=== PATIENT | female | born 1945 | race Caucasian/White ===

== ENCOUNTER 2017-07-18 15:15 | Outpatient (CLI) | payer MEDICARE, BC | END 2017-07-18 15:16 | disposition home or self-care (01) | LOC: BICMAMMO 15:15 | PROVIDERS: ATTEND Physician Assistant | DX: Z13.820 Encounter for screening for osteoporosis (principal) | CPT/HCPCS: 77080 ==

== ENCOUNTER 2017-07-28 12:34 | Outpatient (CLI) | payer MEDICARE, BC ==
--- NOTE | 2017-07-28 17:45 | MRI ---
MRI OF THE RIGHT SHOULDER WITHOUT CONTRAST 07/28/17 INDICATION: History of fall with right shoulder injury. FINDINGS: There is a full thickness tear involving the supraspinatus at its insertion measuring 1.4 x 1.7 cm in its greatest mediolateral AP dimension respectively. A few fibers of the anterior aspect of the supr aspinatus remain attached to the greater tuberosity. There is moderate tendinosis of the infraspinatu s and supraspinatus. No muscular atrophy is evident. Biceps tendon is located. There is some mild deg enerative signal involving the superior glenoid labrum and biceps anchor. Visualized glenohumeral art icular surface is normal appearing. No paralabral cyst is evident. There is mild AC joint osteoarthro sis. There is type II acromion. IMPRESSION: 1. Full thickness supraspinatus tear. 2. Moderate supraspinatus and infraspinatus tendinosis. 3. Mild AC joint osteoarthrosis. 4. Degenerative intrasubstance signal involving the superior glenoid labrum and biceps anchor. POS: OFF
== END 2017-07-28 12:35 | disposition home or self-care (01) ==
LOC: SCSMRI 12:34
PROVIDERS: ATTEND Orthopaedic Surgery Hand Surgery
DX: M75.101 Unspecified rotator cuff tear or rupture of right shoulder, not specified as traumatic (principal); M75.81 Other shoulder lesions, right shoulder; M19.011 Primary osteoarthritis, right shoulder

== ENCOUNTER 2017-08-18 17:50 | Inpatient (IN) | payer MEDICARE, BC ==
[2017-08-18] MEDS ORDERED: Acetaminophen 500 MG TAB ONE (18:15)
[2017-08-18] MEDS ORDERED: cefTRIAXone\\ROCEPHIN 2 GM VIAL ONE (18:50)
[2017-08-18] MEDS ORDERED: Sodium Chloride 0.9% 100 ML ONE (18:51)
[2017-08-18 18:52] LABS: ALT (SGPT) 12 U/L (8-55); AST (SGOT) 45 U/L (5-34); Albumin 3.9 g/dL (3.4-4.8); Alkaline Phosphatase 45 U/L (40-150); Anion Gap 14 mmol/L (10-20); BUN (Urea Nitrogen) 18 mg/dL (9.8-20.1); Calc. Creatinine Clearance 0 mL/min (70-130); Calcium 9.3 mg/dL (7.8-10.44); Carbon Dioxide 23 mmol/L (23-31); Chloride 105 mmol/L (98-107); Estimated GFR-MDRD 56; Globulin 2.4 g/dL (2.4-3.5); Glucose 114 mg/dL (80-115); Lipase 29 U/L (8-78); Potassium 4.2 mmol/L (3.5-5.1); Protein, Total 6.3 g/dL (6.0-8.3); Sodium 138 mmol/L (136-145)
[2017-08-18 18:56] LABS: Band 4 % (5-11); Eosinophils 1 % (0-10); Hemoglobin 12.4 g/dL (12.0-16.0); Lymphocytes 9 % (21-51); MDiff Complete? YES; Mean Corpuscular HGB CONC 33.7 g/dL (32.0-36.0); Mean Corpuscular Hemoglobin 29.1 pg (27.0-31.0); Mean Corpuscular Volume 86.2 fl (81.0-99.0); Mean Platelet Volume 6.8 fL (7.4-10.4); Monocytes 2 % (0-10); Neutrophil 83 % (42-75); PLT Morphology Comment Appears Adequate; Platelet Count 169 thou/uL (130-400); RBC Distribution Width 11.8 % (11.5-14.5); RBC Morphology Normal; Red Blood Cell (RBC) Count 4.27 mill/uL (4.20-5.40); White Blood Cell (WBC) Count 4.5 thou/uL (4.8-10.8)
[2017-08-18 19:35] LABS: Bilirubin Negative (Negative); Blood, Urine Large (Negative); Glucose, Urine (Dipstick) Negative (Negative); Leukocyte Large (Negative); Nitrite Positive (Negative); Protein, Urine (Dipstick) 100 mg/dL (Neg-Trace); Urobilinogen 0.2 mg/dL (0.2-1.0)
[2017-08-18 19:36] LABS: Clarity Hazy (Clear)
[2017-08-18 19:44] LABS: Bacteria/HPF 3+ HPF (None Seen); WBC/HPF 21-50 HPF (0-3)
[2017-08-18 21:23] VITALS: BMI 33.5
[2017-08-18] MEDS ORDERED: Ondansetron ODT 4 MG TAB SL PRN (21:24)
[2017-08-18] MEDS ORDERED: Acetaminophen 325 MG TAB PO PRN (21:24)
[2017-08-18] MEDS ORDERED: Ondansetron HCl/PF 4 MG/2 ML Vial IVP PRN (21:24)
[2017-08-18] MEDS: Sodium Chloride 0.9% 1,000 ML IV SCH ×2 (21:30→23:27)
[2017-08-19] MEDS ORDERED: Ondansetron ODT 4 MG TAB PO PRN (02:31)
[2017-08-19] MEDS ORDERED: Acetaminophen 325 MG TAB PO PRN (02:31)
[2017-08-19] MEDS ORDERED: Senokot 8.6 MG TAB PO PRN (02:31)
[2017-08-19] MEDS ORDERED: Calcium Carbonate 500 MG ChewTAB PO PRN (02:31)
[2017-08-19] MEDS ORDERED: Ondansetron HCl/PF 4 MG/2 ML Vial IVP PRN (02:31)
[2017-08-19] MEDS ORDERED: hydrALAZINE 20 MG/ML VIAL SLOW IVP PRN (02:31)
--- NOTE | 2017-08-19 02:54 | HP ---
DATE OF ADMISSION: 08/18/2017 The patient was seen and examined on 08/18/2017 PRIMARY CARE PHYSICIAN: Dr. Flores. CODE STATUS: FULL CODE. SURROGATE DECISION MAKER: The patient makes her own decision with the help of her family. CHIEF COMPLAINT: Fever and flank pain. HISTORY OF PRESENT ILLNESS: The patient is a 71-year-old female with recurrent urinary tract infecti ons, presented to the emergency room due to fever along with flank pain. Last week, the patient had urinary urgency along with dysuria for which she was started on Bactrim af ter urinalysis and urine culture. However, urine culture showed 25,000-50,000 mixed skin and enteric myles. She was instructed to discontinue Bactrim. Approximately 5 days ago, the patient started having similar symptoms for which urine cultures were d one. This time, urine culture showed E. coli. She was started on Bactrim. Earlier today, she recei tia a call from her primary care physician to discontinue Bactrim and to come to the emergency room f or IV antibiotics. She also had bilateral flank pain along with fever of 103.4 at home. She denies any nausea, vomiting, skin rash, cough, shortness of breath, wheezing. She was also started on Kefle x earlier today based on the urine culture. PAST MEDICAL HISTORY: 1. Recurrent urinary tract infections. 2. Endometriosis. 3. Osteopenia. 4. Hypertension. 5. Hyperlipidemia. PAST SURGICAL HISTORY: 1. Colonoscopy in 2016. 2. Hysterectomy. 3. Gastric sleeve in 2014. ALLERGIES: 1. LEVAQUIN AND CIPROFLOXACIN that causes nausea. 2. VANCOMYCIN. CURRENT HOME MEDICATIONS: Premarin vaginal cream every 7 days, glucosamine, multivitamin. SOCIAL HISTORY: The patient currently lives at home. No smoking or drug use. Drinks alcohol social ly. FAMILY HISTORY: Negative for premature coronary artery disease. REVIEW OF SYSTEMS: The following complete review of systems was negative, unless otherwise mentioned in the HPI or below: Constitutional: Weight loss or gain, ability to conduct usual activities. Skin: Rash, itching. Eyes: Double vision, pain. ENT/Mouth: Nose bleeding, neck stiffness, pain, tenderness. Cardiovascular: Palpitations, dyspnea on exertion, orthopnea. Respiratory: Shortness of breath, wheezing, cough, hemoptysis, fever or night sweats. Gastrointestinal: Poor appetite, abdominal pain, heartburn, nausea, vomiting, constipation, or diarr hea. Genitourinary: Urgency, frequency, dysuria, nocturia. Musculoskeletal: Pain, swelling. Neurologic/Psychiatric: Anxiety, depression. Allergy/Immunologic: Skin rash, bleeding tendency. PHYSICAL EXAMINATION: VITAL SIGNS: In the emergency room showed temperature 103.1, respirations 18, pulse of 104, blood pr essure of 143/58, O2 saturation 94% on room air. GENERAL: A 71-year-old female, in no significant distress, flank pain improved with IV fluid and ant ibiotics in the emergency room. HEENT: Head atraumatic, normocephalic. Sclerae are anicteric. Moist mucous membrane. No oral lesi on. NECK: Supple, no JVD appreciated. No carotid bruit. LUNGS: Clear to auscultation bilaterally. No wheezing, rales, rhonchi. HEART: S1, S2 present. Regular rate and rhythm. No murmur, rubs or gallops. ABDOMEN: Soft, nontender, bowel sounds present, no rebound or guarding. No significant flank tender ness. EXTREMITIES: No edema or calf tenderness. NEUROLOGIC: Grossly nonfocal, moves all four extremities. PSYCHIATRY: Alert, awake, oriented x3. SKIN: Warm and dry. LYMPH NODES: No palpable lymph nodes in the neck. PERIPHERAL VASCULAR: Radial pulses palpable bilaterally. MUSCULOSKELETAL: No joint swelling or tenderness. SKIN: Warm and dry. LABORATORY FINDINGS: CBC showed WBC 4.5 with hemoglobin 12.4, hematocrit 36.8, platelet of 169. Lac tic acid was 1.2. Chemistry showed sodium 138, potassium 4.2, chloride 105, bicarbonate 23, BUN of 1 8, creatinine 0.98. Urinalysis showed 21-50 wbc's with 3+ bacteria. IMPRESSION: 1. Sepsis secondary to urinary tract infection with suspected pyelonephritis. 2. Hypertension, diet controlled. 3. Chronic kidney disease, stage 3. 4. Obesity with a BMI of 33.5. 5. History of recurrent urinary tract infections. 6. Hyperlipidemia. PLAN: 1. The patient will be monitored in the medical floor as an inpatient status. The patient had a tem perature of 103.1 with tachycardia in the emergency room. She also failed outpatient therapy. Urine culture showed E. coli, which is resistant to Bactrim. She is also allergic to CIPROFLOXACIN and LE VAQUIN. The patient received ceftriaxone in the emergency room, which will be continued. She receiv ed 2 liters IV fluid along with Tylenol in the emergency room. Her current temperature is 100.2 with a blood pressure 97/51. We will continue IV fluids at 150 mL an hour. We will consult walking milton sebastián. Continue Rocephin. We will check postvoid residual. We will also consult Dr. Jansen due to res istant organism. We will add p.r.n. antihypertensives. Vital signs q.4 hourly. 2. The patient will require 2-3 days for stabilization. Plan of care was discussed with the patient in detail. She stated understanding.
[2017-08-19] MEDS: Sodium Chloride 0.9% 1,000 ML IV SCH ×4 (03:09→20:14)
[2017-08-19 04:25] LABS: #Lymphocytes 1.2 thou/uL (1.20-3.40); #Monocytes 0.5 thou/uL (0.11-0.59); #Neutrophils 5.5 thou/uL (1.40-6.50); %Basophils 0.2 % (0.0-1.0); %Eosinophils 0.6 % (0.0-10.0); %Lymphocytes 16.6 % (21.0-51.0); %Monocytes 6.9 % (0.0-10.0); %Neutrophils 75.6 % (42.0-75.0); Hemoglobin 10.8 g/dL (12.0-16.0); Mean Corpuscular Hemoglobin 30.8 pg (27.0-31.0); Mean Corpuscular Volume 90.5 fl (81.0-99.0); Mean Platelet Volume 6.9 fL (7.4-10.4); Platelet Count 158 thou/uL (130-400); RBC Distribution Width 11.9 % (11.5-14.5); White Blood Cell (WBC) Count 7.2 thou/uL (4.8-10.8)
[2017-08-19 04:30] LABS: Anion Gap 10 mmol/L (10-20); BUN (Urea Nitrogen) 14 mg/dL (9.8-20.1); Calc. Creatinine Clearance 102 mL/min (70-130); Calcium 8.1 mg/dL (7.8-10.44); Carbon Dioxide 22 mmol/L (23-31); Chloride 113 mmol/L (98-107); Estimated GFR-MDRD 74; Glucose 103 mg/dL (80-115); Potassium 3.9 mmol/L (3.5-5.1); Sodium 141 mmol/L (136-145)
--- NOTE | 2017-08-19 10:48 | PDOC.PN ---
- Subjective Encounter Start Date: 08/19/17 Encounter Start Time: 10:40 Subjective: f/u for suspected sepsis due to UTI with E. coli. Currently on Rocephin -: and feeling better. - Objective Resuscitation Status: Resuscitation Status FULL:Full Resuscitation MAR Reviewed: Yes Vital Signs & Weight: Vital Signs (12 hours) Temp Pulse Resp BP BP BP Pulse Ox 08/19/17 09:45 98.8 F 66 20 97 08/19/17 07:22 98.8 F 66 20 119/68 114/69 106/55 L 97 08/19/17 03:10 98.7 F 76 16 97/57 L 96 I&O: 08/18/17 08/19/17 08/20/17 06:59 06:59 07:59 Intake Total 1606 Output Total 400 Balance 1206 Result Diagrams: 08/19/17 04:07 08/19/17 04:07 Additional Labs: Microbiology 08/15/17 16:57 Urine clean catch Urine Culture - Final Escherichia coli 08/18/17 18:25 Venous blood - Left Arm Blood Culture - Preliminary Specimen has been received and culture in progress. No Growth to date. 08/18/17 18:15 Venous blood - Right Arm Blood Culture - Preliminary Specimen has been received and culture in progress. No Growth to date. Phys Exam - Physical Examination Constitutional: NAD HEENT: PERRLA, oral pharynx no lesions Neck: no JVD, supple Respiratory: no wheezing, clear to auscultation bilateral Cardiovascular: RRR Gastrointestinal: soft, non-tender, no distention, positive bowel sounds mild R CVA tenderness Musculoskeletal: no edema, pulses present Neurological: normal sensation, moves all 4 limbs Psychiatric: A&O x 3 Skin: normal turgor, cap refill <2 seconds Dx/Plan (1) Sepsis Code(s): A41.9 - SEPSIS, UNSPECIFIED ORGANISM Status: Acute Qualifiers: Sepsis type: Escherichia coli Qualified Code(s): A41.51 - Sepsis due to Escherichia coli [E. coli] Comment: Improved with Rocephin, continue IVF's (2) E. coli UTI Code(s): N39.0 - URINARY TRACT INFECTION, SITE NOT SPECIFIED; B96.20 - UNSP ESCHERICHIA COLI THE CAUSE OF DISEASES CLASSD ELSWHR Status: Acute Comment: Continue Rocephin 2gm IV daily, likely can transition to Omnicef once stabilized (3) Pyelonephritis Code(s): N12 - TUBULO-INTERSTITIAL NEPHRITIS, NOT SPCF ACUTE OR CHRONIC Status: Suspected Comment: See above, check PVR (4) YANG (acute kidney injury) Code(s): N17.9 - ACUTE KIDNEY FAILURE, UNSPECIFIED Status: Acute Comment: Continue IVF's, avoid nephrotoxic meds and limit contrast exposure (5) Hypotension Status: Acute Comment: Likely due to sepsis, improved with IVF's - Plan continue antibiotics, out of bed/ambulate, DVT proph w/SCDs Stable overall -: Continue IVF's decrease to 125ml/h -: Continue Rocephin 2gm IV daily -: Check PVR's -: AM lab: BMP * .
[2017-08-19] MEDS ORDERED: cefTRIAXone\\ROCEPHIN 2 GM in Sodium Chloride 0.9% 100 ML IVPB SCH (18:00)
--- NOTE | 2017-08-19 18:45 | ULT ---
RENAL ULTRASOUND: 08/19/17 Brooke scale and doppler color flow imaging performed. CLINICAL HISTORY: Renal insufficiency. FINDINGS: There is no overt hydronephrosis of either kidney. Right renal length is demonstrated at 10.9 cm and left renal length 9.7 cm. the urinary bladder is grossly unremarkable. Ureteral jets are demonstrated . IMPRESSION: 1. No overt hydronephrosis of either kidney. 2. There is subtle decreased echogenicity approximately 1.5 cm of the right kidney. This may rel ate to a calyx, as it does not demonstrate the appearance of a typical cyst. Finding is of doubtful c linical significance. Followup ultrasound may be obtained as a conservative measure. POS: [facility]
--- NOTE | 2017-08-19 20:03 | CON ---
DATE OF CONSULTATION: 08/19/2017 REASON FOR CONSULTATION: Pyelonephritis. HISTORY OF PRESENT ILLNESS: A 71-year-old first admission to [facility]. She has a history of prior urinary tract infections treated in the outpatient setting, endometriosis and hypertension, who developed dysuria, frequency, and fever and flank pain, which failed outpatient management with Bactrim. The initial culture done in the outpatient setting showed 25,000-50,000 CFUs of mixed skin and enteric myles and she was instructed to discontinue Bactrim and then she developed exacerbation o f symptoms that led to admission. She has been given Rocephin and is feeling much improved. No head aches, visual symptoms, sore throat, odynophagia, dysphagia, no cough or sputum production or chest p ain, no abdominal pain. Dysuria has resolved. Flank pain is much milder. No back pain, no joint sy mptoms. No neurological symptoms. PAST MEDICAL HISTORY: Cystitis, endometriosis, osteopenia, hypertension, hyperlipidemia. PAST SURGICAL HISTORY: Colonoscopy, hysterectomy, gastric sleeve. ALLERGIES: Had nausea after taking LEVOFLOXACIN for management of pneumonia in the recent past, but no true hypersensitivity reaction. Some reaction to VANCOMYCIN. HOME MEDICATIONS: Glucosamine, multivitamins. Currently, she is on Tylenol, Tums, ceftriaxone, Love nox, Apresoline, Zofran, and Senokot. SOCIAL HISTORY: Never a smoker. She works as a nurse at [employer]. FAMILY HISTORY: Noncontributory. PHYSICAL EXAMINATION: VITAL SIGNS: T-max 100.2. She is currently 98.9, blood pressure 119/64, pulse 66, respirations 18, O2 sat 97%. SKIN: Shows a peripheral IV access. No Erickson catheter. No lymphadenopathy. HEENT: Normal. NECK: Supple. LUNGS: With symmetric clear breath sounds. HEART: S1, S2, regular rate. No S3, S4, no murmurs. ABDOMEN: Soft, not distended or tender. Slight right CVA tenderness. EXTREMITIES: No joint inflammatory activity. No edema. Pulses 1+ in dorsalis pedis. NEUROLOGIC: Cognitive function appears to be intact. LABORATORY DATA: Normal chemistry. AST 45 and white cell count was 4.5 to 7.2, hemoglobin 10.8, riaz telets 158, 75% neutrophils. Urinalysis with 21-50 wbcs. Microbiology: Negative blood cultures and E. coli with resistance to ampicillin and Bactrim, intermediate to ampicillin/sulbactam and suscepti ble to remainder antimicrobials. A postvoid residual bladder scan showed very little residual. No o ther imaging study done. ASSESSMENT AND PLAN: Recurrent urinary tract infections, now with evidence of pyelonephritis with a fairly susceptible organism. The history of adverse reaction to levofloxacin was quite nonspecific. Certainly it does not suggest true hypersensitivity reaction. I have discussed with patient and we will challenge her with ciprofloxacin given orally. Withhold of Rocephin and preparation for disposi tion hopefully with oral quinolone. If that fails, then she will need a PICC line placement and Roce phin to be continued in the outpatient setting. We will order a kidney ultrasound to evaluate for ob struction.
[2017-08-19] MEDS: Ciprofloxacin 500 MG TAB PO SCH (20:16)
[2017-08-19] MEDS ORDERED: Enoxaparin Sodium 40 MG/0.4 ML SYRINGE SC SCH (21:00)
[2017-08-20] MEDS: Sodium Chloride 0.9% 1,000 ML IV SCH (05:10)
[2017-08-20] MEDS: Ciprofloxacin 500 MG TAB PO SCH (05:17)
[2017-08-20 05:31] LABS: Anion Gap 8 mmol/L (10-20); BUN (Urea Nitrogen) 10 mg/dL (9.8-20.1); Calc. Creatinine Clearance 113 mL/min (70-130); Calcium 8.4 mg/dL (7.8-10.44); Carbon Dioxide 23 mmol/L (23-31); Chloride 113 mmol/L (98-107); Estimated GFR-MDRD 83; Glucose 92 mg/dL (80-115); Potassium 3.9 mmol/L (3.5-5.1); Sodium 140 mmol/L (136-145)
[2017-08-20 08:32] VITALS: BP 130/72; TEMP 98.5
--- NOTE | 2017-08-20 14:17 | DIS ---
DATE OF ADMISSION: 08/19/2017 DATE OF DISCHARGE: 08/20/2017 DISCHARGE DIAGNOSES: 1. Sepsis secondarily to urinary tract infection with Escherichia coli, resolving. 2. Urinary tract infection with Escherichia coli. 3. Right pyelonephritis, resolving. 4. Acute kidney injury, resolving. 5. Hypotension, resolved. CONSULTATIONS: Dr. Jansen with Infectious Disease service. PERTINENT LAB AND X-RAY FINDINGS: Creatinine ranged between 0.70-0.98 with estimated GFR ranging bet ween 56-83. CBC showed a white blood cell count ranging between 4.5-7.2, hemoglobin ranged between 1 0.8-12.4. Urine culture dated 08/15/2017 showed greater than 100,000 colonies of E. coli resistant t o ampicillin and Bactrim, sensitive to quinolones. Blood cultures x2 from 08/18/2017 showed no growt h to date. Renal ultrasound dated 08/19/2017 showed no hydronephrosis. HOSPITAL COURSE: Patient was admitted to the medical floor after initially presenting with fever and right flank pain with concern for possible pyelonephritis. The patient was noted with sepsis criter ia and urinary tract infection, initially managed with IV Rocephin and aggressive IV fluid hydration. The patient was treated with sepsis protocol with urine culture showing E. coli sensitive to quinol ones and cephalosporins. Due to patient's recurrent urinary tract infections previously, Infectious Disease consult was obtained with recommendations to transition to oral quinolone therapy if the herson ent could tolerate without reaction. Rocephin was discontinued and patient was able to tolerate cipr ofloxacin orally without complication. The patient overall clinically improved with IV fluid hydrati on and antibiotic therapy. The patient maintained regular oral intake, ambulated without assistance or difficulty and voided appropriately. The patient remained afebrile through the remainder the hosp ital course with stable vital signs at the time of discharge. The patient is overall clinically stab le and ready for discharge on 08/20/2017. DISCHARGE MEDICATIONS: 1. Ciprofloxacin 500 mg 1 tab p.o. b.i.d. x12 days. 2. Conjugated estrogens one application vaginally q.7 days. 3. Glucosamine 1 capsule p.o. daily. 4. Multivitamin 1 tab p.o. daily. FOLLOWUP: Patient may follow up with her primary care provider, Dr. Yvonne Flores within 7 days of disc harge. CONDITION ON DISCHARGE: Stable. ACTIVITY: Ad sincere. DIET: Heart healthy. CODE STATUS: FULL. DISPOSITION: Home 08/20/2017.
== END 2017-08-20 14:20 | disposition home or self-care (01) | DRG 872 ==
LOC: SCSER 17:50 → 2SW 20:46 → OBSVTOIN 08-19 02:29 → ONC 08-19 16:07
PROVIDERS: ADMIT Internal Medicine; ATTEND Internal Medicine
DX: A41.51 Sepsis due to Escherichia coli [E. coli] (principal); N17.9 Acute kidney failure, unspecified; I95.9 Hypotension, unspecified; N18.3 Chronic kidney disease, stage 3 (moderate); N12 Tubulo-interstitial nephritis, not specified as acute or chronic; N39.0 Urinary tract infection, site not specified; B96.20 Unspecified Escherichia coli [E. coli] as the cause of diseases classified elsewhere; E78.5 Hyperlipidemia, unspecified; I12.9 Hypertensive chronic kidney disease with stage 1 through stage 4 chronic kidney disease, or unspecified chronic kidney disease; E66.9 Obesity, unspecified; Z68.33 Body mass index [BMI] 33.0-33.9, adult
CPT/HCPCS: 36415; 76770; 80048; 80053; 81001; 81003; 81015; 83605; 83690; 85025; 87040; 87077; 87086; 87186; 96361; 96365; A4216; J0696; J1650; J7050

== ENCOUNTER 2018-07-11 06:37 | Outpatient (CLI) | payer MEDICARE, BC ==
[2018-07-11 14:56] LABS: #Eosinphils 0.1 thou/uL (0.0-0.7); #Lymphocytes 1.5 thou/uL (1.20-3.40); #Monocytes 0.3 thou/uL (0.11-0.59); #Neutrophils 2.4 thou/uL (1.40-6.50); %Basophils 1.1 % (0.0-1.0); %Eosinophils 1.5 % (0.0-10.0); %Lymphocytes 35.7 % (21.0-51.0); %Monocytes 6.4 % (0.0-10.0); %Neutrophils 55.3 % (42.0-75.0); Hemoglobin 12.9 g/dL (12.0-16.0); Mean Corpuscular Volume 90.8 fL (78.0-98.0); Mean Platelet Volume 7.5 fL (7.4-10.4); Platelet Count 239 thou/uL (130-400); RBC Distribution Width 11.5 % (11.5-14.5); Red Blood Cell (RBC) Count 4.32 mill/uL (4.20-5.40); White Blood Cell (WBC) Count 4.3 thou/uL (4.8-10.8)
[2018-07-11 15:17] LABS: Anion Gap 15 mmol/L (10-20); BUN (Urea Nitrogen) 14 mg/dL (9.8-20.1); Calc. Creatinine Clearance 0 mL/min (70-130); Calcium 9.5 mg/dL (7.8-10.44); Carbon Dioxide 23 mmol/L (23-31); Chloride 106 mmol/L (98-107); Estimated GFR-MDRD 74; Glucose 74 mg/dL (80-115); Potassium 4.2 mmol/L (3.5-5.1); Sodium 140 mmol/L (136-145)
== END 2018-07-11 06:38 | disposition home or self-care (01) ==
LOC: LABBT 06:37
PROVIDERS: ATTEND Orthopaedic Surgery
DX: Z01.818 Encounter for other preprocedural examination (principal); M75.101 Unspecified rotator cuff tear or rupture of right shoulder, not specified as traumatic
CPT/HCPCS: 80048; 85025; 93005; 93010

== ENCOUNTER 2018-07-13 05:59 | Day surgery (SDC) | payer MEDICARE, BC ==
[2018-07-11 13:24] VITALS: BMI 32.3
[2018-07-13] MEDS ORDERED: CEFAZOLIN 2 GM/50 ML BAG ONE (06:35)
[2018-07-13] MEDS ORDERED: Bupivacaine HCl 0.5%/Epinephrine 1:200,000/PF 30 ml Vial ONE (06:42)
[2018-07-13] MEDS ORDERED: Fentanyl 100 MCG/2 ML VIAL ONE ×2 (06:57→07:18)
[2018-07-13] MEDS ORDERED: Midazolam HCl 2 mg/2 ml Vial ONE (06:57)
[2018-07-13] MEDS ORDERED: Zolpidem Tartrate 5 MG TAB PO PRN (07:23)
[2018-07-13] MEDS ORDERED: HYDROcodone/Acetaminophen 10/325 mg Tablet PO PRN ×2 (07:23)
[2018-07-13] MEDS ORDERED: Promethazine HCl 25 MG/ML VIAL IM PRN (07:23)
[2018-07-13] MEDS ORDERED: traMADol HCl 50 MG TAB PO PRN ×2 (07:23)
[2018-07-13] MEDS ORDERED: Ketorolac Tromethamine 30 MG/ML VIAL IVP PRN (07:23)
[2018-07-13] MEDS ORDERED: Fentanyl 100 MCG/2 ML VIAL IV PRN (07:23)
[2018-07-13] MEDS ORDERED: Ropivacaine 0.2% 550 ML 550 ML NERVE BLCK SCH (07:23)
[2018-07-13] MEDS ORDERED: Ondansetron PF 4 MG/2 ML Vial IVP PRN (07:23)
[2018-07-13] MEDS ORDERED: Ropivacaine 0.5% HCl/PF (150 MG/30 ML VIAL) ONE (13:29)
[2018-07-13] MEDS ORDERED: Ropivacaine 0.2% HCl/PF (40 MG/20 ML VIAL) ONE (13:29)
[2018-07-13] MEDS ORDERED: Glycopyrrolate 0.2 MG/ML 5 ML SYRINGE ONE (13:46)
[2018-07-13] MEDS ORDERED: Lidocaine 1% PF 5 ML VIAL ONE (13:46)
[2018-07-13] MEDS ORDERED: PHENYLEPHRINE-NS 100 MCG/ML 10 ML SYRINGE ONE (13:46)
[2018-07-13] MEDS ORDERED: PROPOFOL 200 MG/20 ML VIAL ONE (13:46)
[2018-07-13] MEDS ORDERED: Rocuronium Bromide 10 MG/ML (10ML VIAL) ONE (13:46)
[2018-07-13] MEDS ORDERED: Ondansetron PF 4 MG/2 ML Vial ONE (13:46)
--- NOTE | 2018-07-16 11:12 | OP ---
DATE OF PROCEDURE: 07/13/2018 PREOPERATIVE DIAGNOSES: Right shoulder impingement rotator cuff tear, degenerative superior labrum anterior and posterior tear leading to biceps tendon instability. POSTOPERATIVE DIAGNOSES: 1. Right shoulder impingement rotator cuff tear, degenerative superior labrum anterior and posterior tear leading to biceps tendon instability. 2. Superior aspect of subscapularis tear also leading to biceps instability. PROCEDURE PERFORMED: 1. Right shoulder arthroscopy with subacromial decompression. 2. Arthroscopic rotator cuff repair. 3. Open biceps tenodesis. ESTIMATED BLOOD LOSS: Minimal. COMPLICATIONS: None. DISPOSITION: She did go to recovery room in stable condition. ANESTHESIA: She did have preoperative block as well as a general anesthetic. INDICATIONS: Almita is a 72-year-old female, whom we have tried to get better nonoperatively, but unfortunately she has failed this. At this time, she wished to have surgery. DESCRIPTION OF PROCEDURE: After verbal consent forms were explained and signed, she was taken back to the operating room and at this time was given general anesthetic. Once anesthesia was appropriate, she was rolled into the left lateral decubitus position. All bony prominences were well padded. An axillary roll was placed underneath the left axilla and a beanbag was inflated to hold her in this position. The arm was then taken through full range of motion. The arm was then suspended in arthroscopic apparatus in standard fashion. We then prepped and draped the right shoulder and upper extremity in standard surgical fashion. Bony anatomical landmarks were drawn out and the subacromial space was infiltrated with Marcaine with epinephrine. Posterior portal was established. The scope was placed into the shoulder joint. The anterior working portal was made just off top part of the subscapularis. Diagnostic arthroscopy was commenced. The glenohumeral cartilage was found to be in excellent condition. There were no loose bodies noted in the axillary pouch. Obvious full-thickness tear noted in the supraspinatus leading also to biceps instability as the sling was torn. Top of the subscapularis was found to be torn and once this was debrided, the remaining subscapularis tendon was normal. The patient had degenerative SLAP tear and at this time, the rotator cuff was debrided from the undersurface and the labrum was also debrided. At this time, a green cannula was placed anteriorly and a needle was placed through the biceps tendon and used to place a stitch into the biceps tendon. At this time, scissors were used to cut the tendon off the superior labrum. At this time, we turned our attention to the subacromial space. The scope was placed into the subacromial space. Lateral working portal was made. Bursa was removed from off the underlying cuff and the rotator cuff tear was defined. The edges of the tendon were cleaned up with a shaver to good healthy tissue. All soft tissue was removed from the greater tuberosity and this was gently roughened up to promote healing. At this time, the passport cannula was placed through a lateral incision. We then took a needle and made another stab incision so that we did place our anchors directly into the bone. One triple-loaded anchor was placed into the bone. The Scorpion device was then used to run the sutures through the rotator cuff in mattress fashion. Once all three sets of sutures were tied, all 6 sutures were taken down laterally and placed into a 4.75 Bio[employer]posite SwiveLock for a double row repair. This gave us a nice repair and at this time, we removed the scope and drained the shoulder. We then took the blade and incised down through the skin to perform our biceps tenodesis. The Bovie was used to clear any brisk venous bleeding. Deltoid fascia was opened sharply. We then used finger dissection to dissect the fibers of the deltoid in line to get down to the underlying transverse humeral ligament. This was opened up and the biceps tendon was pulled out into the wound. All irritated tissue in the bicipital groove was removed and bleeding was coagulated using the Bovie. Once this was cleaned out, the tendon was sutured. The intra-articular portion was removed sharply. We then placed our pin, reamed with a 7 mm reamer to a depth of 25. We then put a 7 x 23 BioComposite Bio-Tenodesis screw in standard fashion to fixate our biceps tendon. The sutures were tied over top, so the screw could not back out. At this time, we thoroughly irrigated and dried the wound. We then ran a Vicryl to close our deltoid fascia, 2-0 Vicryl and nylon sutures were used for skin. The remaining portals were closed with simple nylon stitch as well. Bulky sterile dressing was applied. The patient was then awakened to recovery room in stable condition. All counts were correct at the end of the case and she did receive preoperative IV antibiotics. Job ID: [id number]
== END 2018-07-13 12:50 | disposition home or self-care (01) ==
LOC: SDC 05:59
PROVIDERS: ATTEND Orthopaedic Surgery
PROC: 0LM14ZZ Reattachment of Right Shoulder Tendon, Percutaneous Endoscopic Approach (ICD-10-PCS; principal; 2018-07-13)
PROC: 0RHJ44Z Insertion of Internal Fixation Device into Right Shoulder Joint, Percutaneous Endoscopic Approach (ICD-10-PCS; 2018-07-13)
PROC: 0RNJ4ZZ Release Right Shoulder Joint, Percutaneous Endoscopic Approach (ICD-10-PCS; 2018-07-13)
PROC: 0LS10ZZ Reposition Right Shoulder Tendon, Open Approach (ICD-10-PCS; 2018-07-13)
PROC: 3E0T3BZ Introduction of Anesthetic Agent into Peripheral Nerves and Plexi, Percutaneous Approach (ICD-10-PCS; 2018-07-13)
DX: M75.121 Complete rotator cuff tear or rupture of right shoulder, not specified as traumatic (principal); S43.431A Superior glenoid labrum lesion of right shoulder, initial encounter; M25.311 Other instability, right shoulder; G89.18 Other acute postprocedural pain; E78.5 Hyperlipidemia, unspecified; M19.90 Unspecified osteoarthritis, unspecified site; Z79.899 Other long term (current) drug therapy; Z88.1 Allergy status to other antibiotic agents
CPT/HCPCS: 23430; 29826; 29827; 64415; 97139; A4306; C1713 ×2; J0670; J2001; J2250; J2405; J2704; J2795; J3010

== ENCOUNTER 2018-11-11 20:46 | Emergency (ER) | payer MEDICARE, BC ==
--- NOTE | 2018-11-11 21:30 | RAD ---
EXAM: 3 views of the sacrum/coccyx HISTORY: Sacral/coccygeal pain after fall COMPARISON: None FINDINGS: 3 views of the sacrum/coccyx shows no evidence of displaced sacral or coccygeal fracture. T he sacral alae are symmetric. The sacroiliac joints and pubic symphysis are unremarkable. IMPRESSION: No evidence of sacral or coccygeal fracture.
[2018-11-11] MEDS ORDERED: traMADol HCl 50 MG TAB ONE (21:40)
== END 2018-11-11 21:49 | disposition home or self-care (01) ==
LOC: SCSER 20:46
DX: S30.0XXA Contusion of lower back and pelvis, initial encounter (principal); E78.5 Hyperlipidemia, unspecified; I10 Essential (primary) hypertension; Z79.899 Other long term (current) drug therapy; W19.XXXA Unspecified fall, initial encounter
CPT/HCPCS: 72220

== ENCOUNTER 2019-11-28 14:10 | Outpatient (CLI) | payer MEDICARE, BC ==
--- NOTE | 2019-11-28 15:21 | RAD ---
RADIOGRAPH LUMBAR SPINE 6 VIEWS: DATE: 11/28/2019 HISTORY: 74-year-old female with low back pain and lumbar radiculopathy. TECHNIQUE: AP and bilateral oblique. Lateral neutral, flexion, and extension. FINDINGS: 5 lumbar-type vertebrae. Vertebral body heights are maintained. No spondylolysis identified. Moderate disc space narrowing L5-S1. No severe disc space narrowing at any level. Mild grade 1 anterolisthesis of L4 on L5 which becomes slightly worse during flexion and reduces on extension. Hig h-grade bilateral facet DJD at L5-S1. No scoliosis IMPRESSION: 1) facet osteoarthrosis at lower levels. 2) slightly unstable mild grade 1 spondylolisthesis at L4-5 due to facet osteoarthrosis.
== END 2019-11-28 14:11 | disposition home or self-care (01) ==
LOC: SCSRAD 14:10
PROVIDERS: ATTEND Family Medicine
DX: M47.26 Other spondylosis with radiculopathy, lumbar region (principal); E78.00 Pure hypercholesterolemia, unspecified; M43.16 Spondylolisthesis, lumbar region; Z82.49 Family history of ischemic heart disease and other diseases of the circulatory system
CPT/HCPCS: 72100

== ENCOUNTER 2021-06-21 10:40 | Outpatient (CLI) | payer BC ==
[2021-06-21 11:31] LABS: #Eosinphils 0.1 10x3/uL (0.0-0.5); #Monocytes 0.3 10x3/uL (0.0-1.1); #Neutrophils 2.6 10x3/uL (1.5-8.4); %Basophils 0.9 % (0.0-2.0); %Eosinophils 2.9 % (0.0-6.0); %Lymphocytes 31.7 % (18.0-47.0); %Monocytes 6.9 % (0.0-10.0); %Neutrophils 57.2 % (40.0-75.0); Hemoglobin 12.7 g/dL (12.0-15.5); Mean Corpuscular HGB CONC 31.8 g/dL (32.0-36.0); Mean Corpuscular Hemoglobin 28.2 pg (27.0-33.0); Mean Corpuscular Volume 88.7 fl (81.6-98.3); Mean Platelet Volume 9.7 fl (7.4-10.4); Platelet Count 269 10x3/uL (150-450); RBC Distribution Width 12.5 % (11.5-14.5); White Blood Cell (WBC) Count 4.5 10x3/uL (3.5-10.5)
[2021-06-21 11:43] LABS: Prothrombin Time 10.8 sec (9.5-12.1)
[2021-06-21 11:46] LABS: Anion Gap 14 mmol/L (10-20); BUN (Urea Nitrogen) 17 mg/dL (9.8-20.1); Calc. Creatinine Clearance 0 mL/min (70-130); Calcium 9.1 mg/dL (7.8-10.44); Carbon Dioxide 26 mmol/L (23-31); Chloride 108 mmol/L (98-107); Glucose 83 mg/dL (83-110); Potassium 4.5 mmol/L (3.5-5.1); Sodium 143 mmol/L (136-145)
[2021-06-22 07:26] LABS: SARS-CoV-2 PCR by NAA Not Detected (NotDetected)
== END 2021-06-21 10:41 | disposition home or self-care (01) ==
LOC: LABBT 10:40
PROVIDERS: ATTEND Orthopaedic Surgery
DX: Z01.818 Encounter for other preprocedural examination (principal); M16.12 Unilateral primary osteoarthritis, left hip; Z20.822 Contact with and (suspected) exposure to COVID-19
CPT/HCPCS: 80048; 85025; 85610; 87081; 93005; 93010; U0003; U0005

== ENCOUNTER 2021-06-24 06:05 | Inpatient (IN) | payer MEDICARE, BC ==
[2021-06-24] MEDS ORDERED: Tranexamic Acid 1,000 MG/10 ML VIAL ONE (06:47)
[2021-06-24] MEDS ORDERED: Midazolam HCl 2 mg/2 ml Vial ONE (06:50)
[2021-06-24] MEDS ORDERED: Fentanyl 100 MCG/2 ML VIAL ONE ×3 (06:50→10:15)
[2021-06-24] MEDS ORDERED: Sodium Chloride 0.9% 100 ML ONE (06:51)
[2021-06-24] MEDS ORDERED: Dexamethasone 4 mg/ml Vial ONE (06:55)
[2021-06-24] MEDS ORDERED: Phenylephrine 10 MG/ML VIAL ONE (06:59)
[2021-06-24] MEDS ORDERED: Dexamethasone 20 MG/5 ML VIAL ONE (07:00)
[2021-06-24] MEDS ORDERED: Bupivacaine HCl 0.5%/Epinephrine 1:200,000/PF 30 ml Vial ONE (07:00)
[2021-06-24] MEDS ORDERED: Propofol 1,000 MG/100 ML VIAL IV ONE (07:14)
[2021-06-24] MEDS ORDERED: Vancomycin 1.5 GRAM/300 ML BAG 1.5 GM in Premix Bag 1 BAG IVPB SCH (07:15)
[2021-06-24] MEDS ORDERED: Bupivacaine 0.75% W/DEXTROSE 8.25% 2 ML AMP ONE (07:22)
[2021-06-24] MEDS ORDERED: ceFAZolin 2 GM/Dextrose 50 ML IVPB ONE (07:24)
[2021-06-24] MEDS ORDERED: Bupivacaine PF 0.5% 30 ML VIAL ONE (08:44)
[2021-06-24] MEDS ORDERED: HYDROcodone/Acetaminophen 10/325 mg Tablet PO PRN (09:33)
[2021-06-24] MEDS ORDERED: Ondansetron PF 4 MG/2 ML Vial IVP PRN (09:33)
[2021-06-24] MEDS ORDERED: Zolpidem Tartrate 5 MG TAB PO PRN (09:33)
[2021-06-24] MEDS ORDERED: Promethazine HCl 25 MG/ML VIAL IM PRN (09:33)
[2021-06-24] MEDS ORDERED: diphenhydrAMINE 25 MG CAP PO PRN (09:33)
[2021-06-24] MEDS ORDERED: Fentanyl 100 MCG/2 ML VIAL SLOW IVP PRN (09:33)
[2021-06-24] MEDS ORDERED: Acetaminophen 325 MG TAB PO PRN (09:33)
[2021-06-24] MEDS ORDERED: Non-Formulary Item 1 EACH (Acetaminophen [Tylenol] 325 MG Capsule) PO PRN (09:34)
[2021-06-24] MEDS ORDERED: Meperidine HCl/PF 25 MG/ML VIAL ONE (09:53)
[2021-06-24] MEDS ORDERED: Estrogens, Conjugated 30 GM TUBE VAG SCH (10:30)
[2021-06-24] MEDS: HYDROcodone/Acetaminophen 10/325 mg Tablet PO PRN ×3 (12:33→22:42)
[2021-06-24] MEDS: Sodium Chloride 0.9% 1,000 ML IV SCH ×2 (12:36→18:22)
[2021-06-24] MEDS: Ketorolac Tromethamine 30 MG/ML VIAL IM SCH ×2 (13:23→22:36)
[2021-06-24 15:09] VITALS: BMI 32.1
[2021-06-24] MEDS: ceFAZolin 2 GM/Dextrose 50 ML 2 GM in Premix Bag 1 BAG IVPB SCH (17:37)
[2021-06-24] MEDS ORDERED: Senokot S 8.6-50 MG TAB PO SCH (21:00)
[2021-06-24] MEDS: Aspirin 81 mg Enteric Coated Tablet PO SCH (22:36)
[2021-06-25] MEDS: ceFAZolin 2 GM/Dextrose 50 ML 2 GM in Premix Bag 1 BAG IVPB SCH (01:04)
[2021-06-25 05:31] LABS: Hemoglobin 10.1 g/dL (12.0-16.0); Mean Corpuscular HGB CONC 32.1 g/dL (32.0-36.0); Mean Corpuscular Hemoglobin 28.8 pg (27.0-31.0); Mean Corpuscular Volume 89.7 fL (78.0-98.0); Mean Platelet Volume 7.1 fL (7.4-10.4); Platelet Count 215 thou/uL (130-400); RBC Distribution Width 11.5 % (11.5-14.5); Red Blood Cell (RBC) Count 3.52 mill/uL (4.20-5.40); White Blood Cell (WBC) Count 7.6 thou/uL (4.8-10.8)
[2021-06-25] MEDS: Sodium Chloride 0.9% 1,000 ML IV SCH ×2 (06:24→14:38)
[2021-06-25] MEDS: Ketorolac Tromethamine 30 MG/ML VIAL IM SCH ×3 (06:32→21:56)
[2021-06-25] MEDS: Calcium Carbonate 500 MG TAB PO SCH (08:45)
[2021-06-25] MEDS: Cholecalciferol 1,000 UNITS (25 MCG) TAB PO SCH (08:45)
[2021-06-25] MEDS: Senokot S 8.6-50 MG TAB PO SCH ×2 (08:45→21:55)
[2021-06-25] MEDS: Multivitamin W/ Minerals 1 TAB PO SCH (08:45)
[2021-06-25] MEDS: Aspirin 81 mg Enteric Coated Tablet PO SCH ×2 (08:45→21:55)
[2021-06-25] MEDS: Magnesium Oxide 250 MG TAB PO SCH (08:45)
[2021-06-25] MEDS: Ferrous Gluconate 324 MG TAB PO SCH ×2 (08:46→21:55)
[2021-06-25] MEDS: HYDROcodone/Acetaminophen 10/325 mg Tablet PO PRN ×3 (08:46→21:55)
[2021-06-25] MEDS ORDERED: Non-Formulary Item 1 EACH (Multivitamin [Multivitamins] 1 CAP Capsule) PO SCH (09:00)
[2021-06-26] MEDS: Sodium Chloride 0.9% 1,000 ML IV SCH ×2 (02:48→12:43)
[2021-06-26] MEDS: Ketorolac Tromethamine 30 MG/ML VIAL IM SCH ×2 (06:04→14:12)
[2021-06-26 06:59] LABS: Hemoglobin 10.6 g/dL (12.0-16.0); Mean Corpuscular HGB CONC 33.5 g/dL (32.0-36.0); Mean Corpuscular Hemoglobin 29.9 pg (27.0-31.0); Mean Corpuscular Volume 89.2 fL (78.0-98.0); Mean Platelet Volume 7.4 fL (7.4-10.4); Platelet Count 195 thou/uL (130-400); RBC Distribution Width 11.7 % (11.5-14.5); Red Blood Cell (RBC) Count 3.55 mill/uL (4.20-5.40); White Blood Cell (WBC) Count 5.4 thou/uL (4.8-10.8)
[2021-06-26] MEDS: Senokot S 8.6-50 MG TAB PO SCH (08:47)
[2021-06-26] MEDS: Cholecalciferol 1,000 UNITS (25 MCG) TAB PO SCH (08:47)
[2021-06-26] MEDS: Aspirin 81 mg Enteric Coated Tablet PO SCH (08:47)
[2021-06-26] MEDS: Ferrous Gluconate 324 MG TAB PO SCH (08:47)
[2021-06-26] MEDS: Magnesium Oxide 250 MG TAB PO SCH (08:47)
[2021-06-26] MEDS: Multivitamin W/ Minerals 1 TAB PO SCH (08:47)
[2021-06-26] MEDS: Calcium Carbonate 500 MG TAB PO SCH (08:47)
[2021-06-26] MEDS: HYDROcodone/Acetaminophen 10/325 mg Tablet PO PRN ×2 (09:23→16:51)
[2021-06-26 16:46] VITALS: BP 122/62; TEMP 98.3
[2021-06-28] MEDS ORDERED: Estrogens, Conjugated 30 GM TUBE VAG SCH (09:00)
== END 2021-06-26 19:27 | disposition home or self-care (01) | DRG 470 ==
LOC: SDC 06:05 → SURG A 10:55
PROVIDERS: ADMIT Orthopaedic Surgery; ATTEND Orthopaedic Surgery
PROC: 0SRD0J9 Replacement of Left Knee Joint with Synthetic Substitute, Cemented, Open Approach (ICD-10-PCS; principal; 2021-06-24)
DX: M16.12 Unilateral primary osteoarthritis, left hip (principal); Z20.822 Contact with and (suspected) exposure to COVID-19; I25.10 Atherosclerotic heart disease of native coronary artery without angina pectoris; E78.5 Hyperlipidemia, unspecified; J30.2 Other seasonal allergic rhinitis; Z88.1 Allergy status to other antibiotic agents; Z90.710 Acquired absence of both cervix and uterus; Z79.899 Other long term (current) drug therapy
CPT/HCPCS: 36415; 85027; J0690; J1100; J1885; J2175; J2250; J2370; J2704; J3010; J3370; J3490; J7050; S0020

== ENCOUNTER 2022-03-21 10:31 | Outpatient (CLI) | payer MEDICARE, BC | END 2022-03-21 10:32 | disposition home or self-care (01) | LOC: BICMAMMO 10:31 | PROVIDERS: ATTEND Family Medicine | DX: R92.8 Other abnormal and inconclusive findings on diagnostic imaging of breast (principal); R92.1 Mammographic calcification found on diagnostic imaging of breast; N60.42 Mammary duct ectasia of left breast | CPT/HCPCS: 76642; 77066; G0279 ==